=== PATIENT | male | born 1970 | race African-American/Black ===

== ENCOUNTER 2019-04-17 08:24 | Inpatient (IN) | payer SELFPAY ==
[~2019-04-17] VITALS: Ht 188 cm; Wt 101.2 kg
[2019-04-17] VITALS (7 sets, daily range): BP systolic 122–142; BP diastolic 76–93
--- NOTE | 2019-04-17 08:50 | NUR ---
ED Nurse Note: Pt walked into ED w/ congestion and non-productive coughx2 weeks. Pt denies fever, pain. Pt has chest tightness when breathing, but no pain. Pt is alert and orientedx4, ambulatory. Pt does not have nausea or vomiting. MD has seen patient.
--- NOTE | 2019-04-17 08:51 | NUR ---
ED Nurse Note: Pt now states that L leg had sudden onset of pain right before cough and congestion occurred. Pt has no pain. L is slightly reddened, not hot to touch, no swelling, no pain.
--- NOTE | 2019-04-17 09:03 | Emergency Room Report ---
History of Present Illness General Chief Complaint: Flu Like Symptoms Source: Patient Present Illness HPI Patient is a 48-year-old male who presents after increased nonproductive cough worse with exertion. Previous history of deep venous thrombosis in the past. Is not currently on anticoagulation. Reports having no recent travel. Denies any fever. Intermittent nonproductive cough associated with some shortness of breath and decreased exercise tolerance. Prior history of recent left lower extremity Achilles injury which was treated conservatively. He had noticed initial severe swelling which had somewhat improved. Allergies: Coded Allergies: CODEINE (Verified Allergy, Unknown, 04/17/19) Patient History Past Medical History: see triage record Reviewed Nursing Documentation: PMH: Agreed; PSxH: Agreed Review of Systems All Other Systems: negative except mentioned in HPI Physical Exam Vital Signs Date Time Temp Pulse Resp B/P (MAP) Pulse Ox O2 Delivery O2 Flow Rate FiO2 04/17/19 08:34 98.1 87 19 132/98 (109) 99 Room Air 04/17/19 08:53 99 Sp02 EP Interpretation: reviewed, normal General Appearance: normal inspection, well appearing, no apparent distress, alert, GCS 15 Head: atraumatic ENT: normal ENT inspection, hearing grossly normal, normal voice Neck: normal inspection, full range of motion, supple, no bony tend Respiratory: normal inspection, lungs clear, normal breath sounds, no respiratory distress, no retraction, no wheezing Cardiovascular #1: regular rate, rhythm, no edema Gastrointestinal: normal inspection, normal bowel sounds, non tender, soft, no guarding, no hernia Genitourinary: no CVA tenderness Musculoskeletal: normal inspection, back normal, normal range of motion, swelling - Leg swelling as well as palpable tenderness to the left calf Neurologic: alert, motor strength/tone normal, frame polisher III-XII nml as tested, responsive, speech normal, normal inspection Psychiatric: normal inspection, judgement/insight normal, mood/affect normal Medical Decision Making Diagnostic Impression: Primary Impression: Pulmonary embolism Additional Impression: Deep venous thrombosis ER Course Presented for cough and shortness of breath. Differential diagnosis include was not limited to Deep venous thrombosis, pneumonia, viral influenza, pulmonary embolism, coronavirus among others. Because of complexity of patient' s case laboratory tests and imaging studies were ordered.Duplex ultrasound showed positive for deep venous thrombosis. CT angiogram were subsequently ordered. Patient was given anticoagulation with Lovenox. CT angiogram showed bilateral pulmonary embolisms with moderate clot burden. See radiology report for full details. patient be admitted for further evaluation and treatment of deep venous thrombosis and pulmonary embolism. Patient was not noted not to be tachycardic with a normal oxygen saturation. Did not appear to require thrombolysis at this time. EKG interpreted by me showed diffuse T wave inversion consistent with patient's pulmonary embolism. Troponin was noted to be negative. Dr. Juan Alberto Thurman was contacted for inpatient management due to panel physician Labs Test 04/17/19 09:11 White Blood Count 14.7 K/UL (4.8-10.8) Red Blood Count 4.70 M/UL (4.70-6.10) Hemoglobin 15.7 G/DL (14.2-18.0) Hematocrit 46.3 % (42.0-52.0) Mean Corpuscular Volume 98 FL (80-99) Mean Corpuscular Hemoglobin 33.5 PG (27.0-31.0) Mean Corpuscular Hemoglobin Concent 34.0 G/DL (32.0-36.0) Red Cell Distribution Width 12.9 % (11.6-14.8) Platelet Count 460 K/UL (150-450) Mean Platelet Volume 5.0 FL (6.5-10.1) Neutrophils (%) (Auto) 73.3 % (45.0-75.0) Lymphocytes (%) (Auto) 14.9 % (20.0-45.0) Monocytes (%) (Auto) 6.7 % (1.0-10.0) Eosinophils (%) (Auto) 4.0 % (0.0-3.0) Basophils (%) (Auto) 1.1 % (0.0-2.0) D-Dimer 20.30 mg/L FEU (0.00-0.49) Last Vital Signs Date Time Temp Pulse Resp B/P (MAP) Pulse Ox O2 Delivery O2 Flow Rate FiO2 04/17/19 08:53 89 16 Room Air 99 04/17/19 08:53 98.1 122/76 98 Status: unchanged Disposition: ADMITTED INPATIENT Condition: Serious Scripts No Active Prescriptions or Reported Meds Referrals: NOT CHOSEN IPA/,REFERRING (PCP) Elian Tsang MD Apr 17, 2019 09:03
--- NOTE | 2019-04-17 09:13 | NUR ---
ED Nurse Note: Blood sent to lab.
[2019-04-17 09:40] LABS: BASOPHILS % (AUTO) 1.1 % (0.0-2.0); HEMATOCRIT 46.3 % (42.0-52.0); HEMOGLOBIN 15.7 G/DL (14.2-18.0); LYMPHOCYTES % (AUTO) 14.9 % (20.0-45.0); MEAN CORPUSCULAR VOLUME 98 FL (80-99); MONOCYTES % (AUTO) 6.7 % (1.0-10.0); NEUTROPHILS % (AUTO) 73.3 % (45.0-75.0); PLATELET COUNT 460 K/UL (150-450); RED CELL DISTRIBUTION WIDTH 12.9 % (11.6-14.8); WHITE BLOOD COUNT 14.7 K/UL (4.8-10.8)
[2019-04-17] MEDS ORDERED: Omnipaque 350 100ml vial INJ PRN (10:30)
[2019-04-17] MEDS ORDERED: Enoxaparin 100mg Inj SUBQ ONE (10:30)
[2019-04-17 10:44] LABS: ANION GAP 9 mmol/L (5-15); BLOOD UREA NITROGEN 14 mg/dL (7-18); CALCIUM 9.4 MG/DL (8.5-10.1); CARBON DIOXIDE 27 MMOL/L (21-32); CHLORIDE 104 MMOL/L (98-107); CREATININE 1.5 MG/DL (0.55-1.30); POTASSIUM 4.3 MMOL/L (3.5-5.1); SODIUM 140 MMOL/L (136-145)
[2019-04-17 10:55] LABS: ALANINE AMINOTRANSFERASE 55 U/L (12-78); ALBUMIN 3.2 G/DL (3.4-5.0); ALBUMIN/GLOBULIN RATIO 0.5 (1.0-2.7); ALKALINE PHOSPHATASE 280 U/L (46-116); ASPARTATE AMINO TRANSFERASE 68 U/L (15-37); BILIRUBIN,TOTAL 1.4 MG/DL (0.2-1.0)
[2019-04-17 11:04] LABS: BILIRUBIN,DIRECT 0.2 MG/DL (0.0-0.3)
--- NOTE | 2019-04-17 11:15 | Diagnostic Imaging Report ---
EXAM: XR Chest, 1 View CLINICAL HISTORY: SOB TECHNIQUE: Frontal view of the chest. COMPARISON: None FINDINGS: Hardware: None. Lungs/pleura: Normal. No focal consolidation. No pleural effusion or pneumothorax. Heart/mediastinum: Normal. No cardiomegaly. Soft tissues: Unremarkable. Bones: No acute fracture. Upper abdomen: Normal. IMPRESSION: No acute disease identified.
--- NOTE | 2019-04-17 11:21 | NUR ---
HAND-OFF: Report given to Giovany BELL.
--- NOTE | 2019-04-17 11:25 | NUR ---
ED Nurse Note: Patient went to CT.
--- NOTE | 2019-04-17 11:50 | NUR ---
ED Nurse Note: Patient returned from CT.
--- NOTE | 2019-04-17 12:06 | Diagnostic Imaging Report ---
EXAM: US Duplex Left Lower Extremity Veins CLINICAL HISTORY: SWELL TECHNIQUE: Real-time duplex ultrasound scan of the left lower extremity veins integrating B-mode two-dimensional vascular structure, Doppler spectral analysis, color flow Doppler imaging and compression. COMPARISON: None FINDINGS: Deep veins: Occlusive thrombus in the left common femoral vein, deep femoral vein, superficial femoral vein, and popliteal vein. Possible nonocclusive thrombus in the left posterior tibial vein and peroneal veins. Superficial veins: Unremarkable. No thrombus in the visualized great saphenous vein. Soft tissues: No acute findings. No popliteal cyst. Other findings: Thrombus in the left external iliac vein. IMPRESSION: 1. Thrombus in the left external iliac vein. 2. Occlusive thrombus in the left common femoral vein, deep femoral vein, superficial femoral vein, and popliteal vein. 3. Possible nonocclusive thrombus in the left posterior tibial vein and peroneal veins. <MYCVCSECTION> Communications: 04/17/19 12:07 Call Doctor Regarding Acute DVT, called MD Sharan on 04/16 12:07 (-08:00)
--- NOTE | 2019-04-17 12:12 | Diagnostic Imaging Report ---
EXAM: CT Angiography Chest With Intravenous Contrast CLINICAL HISTORY: CP TECHNIQUE: Axial computed tomographic angiography images of the chest with intravenous contrast. CTDI is 43.8 mGy and DLP is 263 mGy-cm. One or more of the following dose reduction techniques were used: automated exposure control, adjustment of the mA and/or kV according to patient size, use of iterative reconstruction technique. MIP reconstructed images were created and reviewed. COMPARISON: Chest radiograph on 04/17/2019 FINDINGS: Pulmonary arteries: Pulmonary emboli noted in the distal left pulmonary artery, extending into the segmental and subsegmental arteries to the left upper lobe and left lower lobe. Pulmonary emboli noted in the distal right pulmonary artery, extending into the segmental and subsegmental pulmonary arteries of the right upper lobe, right middle lobe, and right lower lobe. No saddle embolus. Aorta: No aortic aneurysm or dissection. Lungs: Unremarkable. No mass. No consolidation. Pleural space: Unremarkable. No significant effusion. No pneumothorax. Heart: There is still normal bowing of the interventricular septum at this time. Mild cardiomegaly. No significant pericardial effusion. Bones/joints: No acute fracture. No dislocation. Soft tissues: Mild bilateral gynecomastia. Lymph nodes: Unremarkable. No enlarged lymph nodes. Gallbladder and bile ducts: Cholelithiasis. IMPRESSION: 1. Pulmonary emboli noted in the distal left pulmonary artery, extending into the segmental and subsegmental arteries to the left upper lobe and left lower lobe. Pulmonary emboli noted in the distal right pulmonary artery, extending into the segmental and subsegmental pulmonary arteries of the right upper lobe, right middle lobe, and right lower lobe. No saddle embolus. 2. No aortic aneurysm or dissection. 3. No acute pulmonary parenchymal abnormality identified. <MYCVCSECTION> Communications: 04/17/19 12:12 Call Doctor Regarding Pulmonary Embolism, called MD Sharan on 04/16 12:12 (-08:00)
--- NOTE | 2019-04-17 12:47 | NUR ---
ED Nurse Note: Report given to Virginia BELL
--- NOTE | 2019-04-17 13:00 | NUR ---
NURSE NOTES: Patient stable AOx4. SR on bus monitor. No complaints of pain and no s/sx of distress. RR even and unlabored on RA. Mild swelling noted to LT leg. No pain or tenderness. Patient aware that he is on bedrest and has urinal at bedside. Belongings checked and $203 counted. iPhone and glasses accounted for. Pt oriented to the floor. Side rails upx2, call light within reach, bed low and locked. Will continue to monitor.
[2019-04-17] MEDS: Eliquis 5mg tablet ORAL SCH (17:30)
[2019-04-17] MEDS ORDERED: Guaifenesin/DM 10ml syrup ORAL PRN (18:45)
--- NOTE | 2019-04-17 19:04 | NUR ---
HAND-OFF: Report given to Jonathan Palomo RN. Patient stable sleeping at this time. Plan of care endorsed.
--- NOTE | 2019-04-17 19:05 | NUR ---
NURSE NOTES: Received patient from ARABELLA Barbour. Patient is aaox4, vss, with no acute distress. Patient is cooperative and well groomed. Patient is on room air and uses a urinal. Patient coughs when he talked for short periods of time. IV site is on his left AC 20g and it is patent and no signs of infection. Patient is ambulatory although instructed not to ambulate. MD at bed side. Bed is at its lowest position, call light in reach and X2 bed rails are up. Will continue to monitor.
--- NOTE | 2019-04-17 20:00 | History and Physical Report ---
DATE OF ADMISSION: 04/17/2019 CHIEF COMPLAINT: DVT and PE. HISTORY OF PRESENT ILLNESS: The patient is a 48-year-old male. He has a history of Crohn's disease. He has a prior history of DVT approximately 9 months ago. He was treated for 6 months and completed his treatment. The DVT as far as the patient knows is unprovoked in February, apparently pulled his catheterization and that he tore his Achilles. He declined surgery at that time. He noted that initially the leg was swollen but it improved but several weeks ago, he again developed swelling of the left leg extending into his thigh. He saw his primary care physician. According to the patient, he was told that this is normal. He has had intermittent episodes of shortness of breath and then he presented to the emergency room. On evaluation there, venous duplex showed a left-sided DVT. A CT scan of the chest showed pulmonary embolism noted in the distal left pulmonary artery. Pulmonary emboli was also noted in the distal right pulmonary artery. The patient is now admitted for further evaluation and care. PAST MEDICAL HISTORY: As above. PAST SURGICAL HISTORY: None. CURRENT MEDICATIONS: Reconciled and reviewed. ALLERGIES: None. FAMILY HISTORY: Significant for diabetes. SOCIAL HISTORY: Negative for tobacco, ethanol, or drugs. REVIEW OF SYSTEMS: Negative except for left leg swelling and shortness of breath. PHYSICAL EXAMINATION: VITAL SIGNS: Temperature 98 degrees, pulse 93, respirations 18, and blood pressure 142/86. GENERAL: The patient is well developed, in no apparent distress. HEART: Regular rate and rhythm. LUNGS: Clear. ABDOMEN: Soft, nontender, and nondistended. EXTREMITIES: Without clubbing or cyanosis. There is trace edema noted to the left leg. LABORATORY DATA: Labs were reviewed. ASSESSMENT: This is a pleasant 48-year-old male with a history of Crohn's disease admitted with acute DVT and pulmonary embolism. PLAN: The patient was given a dose of Lovenox. He has been initiated on Eliquis loading dose twice a day. We will followup an echo. If stable, the patient can likely be discharged in the next 24 to 48 hours. We will follow up with his PMD. Juan Alberto Thurman M.D. DR: IRAIDA JOB#: [id number] CC:
--- NOTE | 2019-04-17 23:32 | NUR ---
NURSE NOTES: Patient c/o Crohn's flair up and asked for an ice pack. Ice pack in towel given and patient went back to sleep. Patient also c/o migraine. Will call MD for migraine medication.
--- NOTE | 2019-04-18 | NUR ---
NURSE NOTES: Late entry: Patient stated his migraine has gone away for now.
[2019-04-18 04:00] VITALS: BP 120/79
--- NOTE | 2019-04-18 06:54 | NUR ---
HAND-OFF: Report given to ARABELLA Del Rosario.
--- NOTE | 2019-04-18 07:10 | NUR ---
NURSE NOTES: received patient report from sue lopez. patient is on bed awake. comfortably eating breakfast. no acute events last night. VSS. bed rest. will follow plan of care.
--- NOTE | 2019-04-18 07:43 | General Progress Note ---
Assessment/Plan Problem List: (1) Deep venous thrombosis ICD Codes: I82.409 - Acute embolism and thrombosis of unspecified deep veins of unspecified lower extremity SNOMED: 963261349 (2) Pulmonary embolism ICD Codes: I26.99 - Other pulmonary embolism without acute cor pulmonale SNOMED: 98787879 Status: stable, progressing Assessment/Plan: cont current rx monitor for bleeding PPI dc planning tomorrow. Subjective ROS Limited/Unobtainable: No Constitutional: Reports: malaise, weakness HEENT: Reports: no symptoms Cardiovascular: Reports: no symptoms Respiratory: Reports: cough Gastrointestinal/Abdominal: Reports: no symptoms Genitourinary: Reports: no symptoms Neurologic/Psychiatric: Reports: no symptoms Endocrine: Reports: no symptoms Hematologic/Lymphatic: Reports: no symptoms Allergies: Coded Allergies: CODEINE (Verified Allergy, Unknown, 04/17/19) All Systems: reviewed and negative except above Subjective c/o migraine headaches. no bleeding. no fever or chills. no sob. echo noted. Objective Last 24 Hour Vital Signs Date Time Temp Pulse Resp B/P (MAP) Pulse Ox O2 Delivery O2 Flow Rate FiO2 04/18/19 04:00 98.1 82 20 120/79 (93) 04/18/19 04:00 Room Air 04/18/19 04:00 86 04/17/19 23:41 Room Air 04/17/19 23:40 99.5 92 20 129/79 (96) 04/17/19 20:00 Room Air 04/17/19 20:00 90 04/17/19 20:00 99.5 86 18 134/88 (103) 04/17/19 16:00 98.2 94 18 142/86 (104) 04/17/19 16:00 93 04/17/19 16:00 Room Air 04/17/19 13:35 Room Air 04/17/19 13:00 98.7 95 18 133/93 (106) 04/17/19 12:55 98.0 83 16 125/77 97 Room Air 99 04/17/19 12:48 98.0 83 16 125/77 97 Room Air 04/17/19 10:20 98.1 84 17 126/79 98 Room Air 04/17/19 08:53 89 16 Room Air 99 04/17/19 08:53 98.1 82 16 122/76 98 Room Air 04/17/19 08:34 98.1 87 19 132/98 (109) 99 Room Air Intake and Output 04/17/19 04/18/19 19:00 07:00 Intake Total 1000 ml 2500 ml Output Total 2300 ml Balance 1000 ml 200 ml Intake Oral 1000 ml 2500 ml Output Urine Total 2300 ml # Voids 1 7 Laboratory Tests 04/17/19 09:11: White Blood Count 14.7H, Red Blood Count 4.70, Hemoglobin 15.7, Hematocrit 46.3 , Mean Corpuscular Volume 98, Mean Corpuscular Hemoglobin 33.5H, Mean Corpuscular Hemoglobin Concent 34.0, Red Cell Distribution Width 12.9, Platelet Count 460H, Mean Platelet Volume 5.0L, Neutrophils (%) (Auto) 73.3, Lymphocytes (%) (Auto) 14.9L, Monocytes (%) (Auto) 6.7, Eosinophils (%) (Auto) 4.0H, Basophils (%) (Auto) 1.1, D-Dimer 20.30H, Sodium Level 140, Potassium Level 4.3 , Chloride Level 104, Carbon Dioxide Level 27, Anion Gap 9, Blood Urea Nitrogen 14, Creatinine 1.5H, Estimat Glomerular Filtration Rate > 60, Glucose Level 121H , Calcium Level 9.4, Total Bilirubin 1.4H, Direct Bilirubin 0.2, Aspartate Amino Transf (AST/SGOT) 68H, Alanine Aminotransferase (ALT/SGPT) 55, Alkaline Phosphatase 280H, Total Protein 9.4H, Albumin 3.2L, Globulin 6.2, Albumin/ Globulin Ratio 0.5L Height (Feet): 6 Height (Inches): 2.00 Weight (Pounds): 224 General Appearance: WD/WN, alert Neck: supple Cardiovascular: regular rhythm Respiratory/Chest: chest wall non-tender, lungs clear, normal breath sounds, no respiratory distress, no accessory muscle use Abdomen: normal bowel sounds, non tender, soft, no organomegaly Edema: 1+ Leg (L) Neurologic: regulatory affairs director II-XII grossly normal, no motor/sensory deficits, alert, oriented x 3 Juan Alberto Thurman MD Apr 18, 2019 07:43
[2019-04-18 08:00] VITALS: BP 129/77
[2019-04-18] MEDS: Eliquis 5mg tablet ORAL SCH ×2 (08:14→17:22)
[2019-04-18 12:00] VITALS: BP 124/85
[2019-04-18 16:00] VITALS: BP 126/68
--- NOTE | 2019-04-18 19:11 | NUR ---
HAND-OFF: Report given to micheal lopez.
--- NOTE | 2019-04-18 19:12 | NUR ---
NURSE NOTES: received pt from Carin BELL., pt is awake and AOx4. no SOB noted in RA. pt states no pain at this moment. no dysrhythmia reported from previous shift. IV Left AC 20g is intact, clean, and patent. call light within reach. bed at the lowest position, alarmed and locked. will continue to monitor pt with plan of care.
[2019-04-18 20:00] VITALS: BP 125/80
[2019-04-19] VITALS: BP 124/67
--- NOTE | 2019-04-19 03:30 | NUR ---
NURSE NOTES: pt refuses to take vital signs at this moment. call light within reach. bed at the lowest position. pt told us to take vital later since he wants to sleep.
--- NOTE | 2019-04-19 03:31 | NUR ---
NURSE NOTES: no SOB noted. pt states no pain. will closely monitor pt,
[2019-04-19 04:00] VITALS: BP 127/77
--- NOTE | 2019-04-19 06:20 | NUR ---
NURSE NOTES: Dr. Babcock seen pt, and per Dr. babcock pt is okay to discharge.
[2019-04-19] MEDS ORDERED: ELIQUIS5 MG PO (07:13)
--- NOTE | 2019-04-19 07:15 | NUR ---
HAND-OFF: Report given to Josefa Dupree RN., pt remains stable. endorsed plan of care.
--- NOTE | 2019-04-19 07:20 | NUR ---
NURSE NOTES: Report received from Libertad Sharma RN.Pt awake,alert oriented,sitting up on bed eating breakfast noted no resp distress denies any c/o pain or discomfort ,SR on the monitor,skin warm and dry IV heplock to LAC intact,SR up x2,call light within reach at bedside,bed lock in lowest position ,will continue with plans of care.
[2019-04-19 08:00] VITALS: BP 122/79
[2019-04-19] MEDS: Eliquis 5mg tablet ORAL SCH (08:45)
--- NOTE | 2019-04-19 11:35 | NUR ---
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
--- NOTE | 2019-04-19 12:02 | NUR ---
NURSE NOTES: Discharge instructions re medic Eliquis,indications and side effects explained to pt,verbalized understanding but pt states that medic is epensive and not covered by his insurance and would like a switched to Coumadin.called DR Thurman re the prob,call returned and explained that pt need to be on therapeutiic level of Eliquis x a week and he will give a free sample of the Eliquis in his office,then he will be switched to Coumadin.Explained this to pt and he verbalized understanding.
[2019-04-19] MEDS ORDERED: NS 275ml ONE (12:27)
--- NOTE | 2019-04-19 16:30 | Discharge Summary ---
DATE OF ADMISSION: 04/17/2019 DATE OF DISCHARGE: 04/19/2019 ADMISSION DIAGNOSES: DVT and PE. HOSPITAL COURSE: The patient is a 48-year-old male with a prior history of DVT. He injured his calf muscle late last year, he afterwards developed some swelling. He saw his PMD, but because of persistent swelling, he presented to the emergency room. He had a venous duplex, which showed an acute DVT as well as a CT angio of the chest that showed multiple peripheral pulmonary embolism. Echo showed normal LV function. He was given a dose of Lovenox and started immediately on Eliquis. He tolerated the Eliquis well without any bleeding. He was discharged home with instructions to continue Eliquis 10 mg twice a day for the next five days and then cut down to 5 mg twice a day. He has been asked to follow up with PMD in one to two weeks and return to the hospital for any worsening chest pain or shortness of breath or bleeding. DISCHARGE MEDICATIONS: Please see discharge medication list for discharge medications. DIET: Regular diet. ACTIVITIES: Ad-alireza. Juan Alberto Thurman M.D. DR: EMILIA JOB#: [id number] CC:
[2019-04-24] MEDS ORDERED: Eliquis 5mg tablet ORAL SCH (18:00)
== END 2019-04-19 12:28 | disposition home or self-care (01) | DRG 299 ==
LOC: EMR 08:50 → EDBEDREQ 10:35 → 2W 10:58 → EDBEDREQ 12:19 → 2W 21:50
DX: I82.402 Acute embolism and thrombosis of unspecified deep veins of left lower extremity (principal); I26.99 Other pulmonary embolism without acute cor pulmonale; Z88.6 Allergy status to analgesic agent
CPT/HCPCS: 36415; 71045; 71275; 80053; 82248; 85025; 85379; 93005; 93306; 93971; 96372; 99285